=== PATIENT | male | born 1985 | race Caucasian/White ===

== ENCOUNTER 2020-09-25 20:04 | Emergency (ER) | payer OTHER, SELFPAY ==
[2020-09-25 20:11] VITALS: BP 124/78; BP 127/79; PULSE 116; PULSE 119; RESP 20; TEMP 37.2; O2SAT 99; BMI 30.1
--- NOTE | 2020-09-25 21:10 | MHC.RECOVSUP ---
Recovery Support o Current location: ED-22 o Identified substance use concern: Alcohol/Opioid - Overdose <del>-</del> <del>Withdrawal</del> <del>-</del> <del>Seeking</del> <del>ATS</del> <del>(detox)</del> - Support ? Intervention: <del>o</del> <del>ATS</del> <del>bed</del> <del>search</del> <del>started/completed/in</del> <del>process</del> <del>o</del> <del>MAT</del> <del>started</del> <del>or</del> <del>to</del> <del>be</del> <del>started</del> o Community resources provided o Harm reduction discussion ? Plan: <del>o</del> <del>Referral</del> <del>to</del> <del>[facility]</del> <del>o</del> <del>Bed</del> <del>search</del> <del>in</del> <del>progress</del> <del>to</del> <del>o</del> <del>Follow</del> <del>up</del> <del>tomorrow</del> <del>o</del> <del>Patient</del> <del>awaiting</del> <del>crisis</del> <del>evaluation</del> o Patient to follow up with [facility] after discharge ? Additional information:pt was brought in due to an overdose after using for the first time in a while. pt currently suffers from homelessness and is living with his parents. pt stated that he is in an MAT clinic and has been trying to get on VIVITROL. pt also stated that he has a hx of mental health which he described as depression. pt said that he got a ride from [employer] to [email or web address] and had a few drinks which then lead him to buying heroin. He said that he bought one bag and the last thing that he remembers was doing the bag of heroin. pt stated that the people who were around him were the ones who called 911. After speaking with him for sometime pt got emotional and said that he really wants to change for his daughter who is 2. 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 I was able to provide him with multiple resources including recovery coaching. He will give Gagan a call on Monday and I will then get him connected with a sales coach and also into [facility] treatment. I was also able to call his mother so that she can provide him transportation when he is d/c.
--- NOTE | 2020-09-25 21:14 | ED_ITS ---
HPI - Overdose General Chief Complaint: Overdose Stated Complaint: OVERDOSE Time Seen by Provider: 09/25/20 21:14 Source: patient Mode of arrival: EMS History of Present Illness HPI Narrative: This is a 35-year-old male is brought in by EMS after receiving 8 mg of Narcan and total for noted unresponsiveness. Patient states that he had 2 alcoholic drinks this evening and then used heroin after being sober for 3 months. He states that he can feel himself ?going down? and denies any suicidal intent. Related Data Allergies Allergy/AdvReac Type Severity Reaction Status Date / Time Penicillins [PCN] Allergy Severe ANAPHYLAXIS Unverified 03/19/20 18:43 Review of Systems Review of Systems: Pertinent positives and negatives as stated in HPI 10 point review of systems is otherwise negative. PMFSH Past Medical History Source: nursing notes reviewed Social History Social History Advance Directives: No Advance Directives Information Provided: No Physical Exam Vital Signs: Vital Signs: Last Vital Signs Temp 98.6 F 09/25/20 22:00 Pulse 91 09/25/20 22:00 Resp 20 09/25/20 22:00 BP 114/78 09/25/20 22:00 Pulse Ox 99 09/25/20 22:00 Body Mass Index 30.1 VITAL SIGNS: Reviewed. GENERAL: Well developed, well nourished, in no acute distress. HEAD: Normocephalic/atraumatic EYES: PERRLA, EOMI intact OROPHARYNX: no oral lesions noted, posterior pharynx clear NECK: Supple, no adenopathy LUNGS: Normal breath sounds. No adventitious sounds or accessory muscle use. SpO2<99> CARDIOVASCULAR: Regular rate and rhythm without noted murmurs ABDOMEN: Soft, non-tender, non-distended with bowel sounds. SKIN: Inspection of the skin reveals no rashes NEUROLOGIC: Alert and oriented x 4. Course Course Course Narrative: This is a 35-year-old male with history and clinical presentation consistent with relapse, he spoke with his ice skating coach who is provided him with additional outpatient resources, and otherwise patient is stable for discharge to home and continues to deny any suicidal ideation. Discharge Plan Discharge Clinical Impression: Drug overdose Patient Disposition: Home, Self-Care Instructions: Adult Overdose (ED) Additional Instructions: Do not hesitate to return to the emergency department should you develop any concerns regarding detox and we will be more than happy to assist. Referrals: Physician,Unknown [Primary Care Provider] - 2 days Interventions: ED Discharge Assessment Last Done: 09/25/20 22:43 Discharge Date/Time: 09/25/20 22:43
[2020-09-25 22:00] VITALS: BP 114/78; PULSE 91; RESP 20; TEMP 37; O2SAT 99
== END 2020-09-25 22:43 | disposition home or self-care (01) ==
PROVIDERS: Emergency Provider Student in an Organized Health Care Education/Training Program
DX: T40.1X1A Poisoning by heroin, accidental (unintentional), initial encounter (principal); Y92.9 Unspecified place or not applicable; Z71.51 Drug abuse counseling and surveillance of drug abuser
CPT/HCPCS: 99284

== ENCOUNTER 2021-11-13 04:12 | Emergency (ER) | payer OTHER, SELFPAY ==
[2021-11-13 04:21] VITALS: BP 134/88; PULSE 76; O2SAT 96
[2021-11-13 04:22] VITALS: BMI 25.8
[2021-11-13 04:41] VITALS: BP 146/84; PULSE 70; RESP 18; TEMP 36.7; O2SAT 97; BMI 30.4
[2021-11-13] MEDS: Ibuprofen 600 MG TABLET PO (04:47)
--- NOTE | 2021-11-13 07:51 | PC.NURSE ---
PT SLEEPING, AROUSABLE TO PHYSICAL AND VERBAL STIM. GIVEN FOOD, PLAN IS FOR DISCHARGE
--- NOTE | 2021-11-13 08:13 | ED.GENADULT ---
HPI - General Adult General Chief complaint: General Medical Stated complaint: headache Time Seen by Provider: 11/13/21 08:13 Source: patient Mode of arrival: ambulatory Limitations: no limitations History of Present Illness HPI narrative: 36-year-old male homeless has no place to go came in last night for headache, patient was sleeping overnight in the ED admitted that the headache is better now, no other symptoms or complaint, patient declined SI or HI, patient will be going to a friend. Related Data Allergies Allergy/AdvReac Type Severity Reaction Status Date / Time Penicillins [PCN] Allergy Severe ANAPHYLAXIS Unverified 03/19/20 18:43 Review of Systems Review of Systems: All other systems are reviewed and are negative Constitutional: Reports as per HPI and Reports no additional constitutional complaints Eyes: Reports as per HPI and Reports no additional eye complaints Reports system reviewed and no additional complaints, except as documented Cardiovascular: Reports as per HPI and Reports no additional cardiovascular complaints Respiratory: Reports as per HPI and Reports no additional respiratory complaints Gastrointestinal: Reports as per HPI and Reports no additional gastrointestinal complaints Genitourinary: Reports no additional female genitourinary complaints Musculoskeletal: Reports no additional musculoskeletal complaints Skin/Breast: Reports system reviewed and no additional complaints, except as docu Psychiatric: Reports no additional psychiatric complaints Endocrine: Reports no additional endocrine complaints Hematologic/Lymphatic: Reports no additional hematologic/lymphatic complaints Allergic/Immunologic: Reports no additional allergic/immunologic complaints Reports system reviewed and no additional complaints, except as documented and Reports Abnormal speech present [facility] Social History Social History Advance Directives: No Advance Directives Information Provided: No Physical Exam ED Vital Signs: Vital Signs - 24 hr 11/13/21 04:41 Temperature 98.0 F Pulse Rate 70 Respiratory Rate 18 Blood Pressure 146/84 H Pulse Oximetry 97 BMI result Body Mass Index 30.4 vital signs have been reviewed as appeared to be correct. Blood pressure normal. Heart rate normal. Respiration rate normal. Temperature normal. Oxygen saturation normal. Appearance: Alert. Oriented X3. No acute distress. Head: Normal external exam. Normocephalic. Atraumatic. No Posada signs noted. No raccoon eyes noted Eyes: PERRLA. EOMI. Conjunctiva and sclera normal. Eyelids normal. ENT: TM's Normal. Pharynx normal. Uvula midline. Moist mucous membranes. No trismus noted. No drooling noted. No muffled voice noted. Neck: Normal inspection. Neck supple. FROM. No adenopathy. Thyroid Normal. No meningeal signs. No neck mass noted. CVS: Normal heart rate and rhythm. Heart sound normal. No murmurs noted. Pulses normal throughout. Respiratory: No respiratory distress. Painless inspiration. Breath sounds normal. No wheezes/rales/rhonchi noted. Chest nontender. No accessory muscle usage noted or decreased air movement noted. Abdomen: Soft and nontender. Bowel sounds normal in all 4 quadrants. No distention noted. No organomegaly noted. No visible injury noted. Back: No CVA tenderness. Full range of motion noted. Skin: Skin warm and dry. Normal skin color. Normal skin turgor. No rashes/lesions/lacerations noted. Extremities: No lower extremity edema. Extremities exhibit normal range of motion. Extremities nontender. Neuro: Oriented X 3. Cranial nerve exam: II-XII are grossly intact No motor deficit. No sensory deficit. Reflexes normal. Course Course Course Narrative: Assessment and plan. 36-year-old male came in with headache, patient now is asymptomatic, has no or symptoms at the moment. Discharge Plan Discharge Clinical Impression: Headache Patient Disposition: Home, Self-Care Instructions: Acute Headache (ED) Referrals: Pamela Sharp NP [Primary Care Provider] -
== END 2021-11-13 08:29 | disposition home or self-care (01) ==
PROVIDERS: Emergency Provider Emergency Medicine; PCP Nurse Practitioner Family
DX: R51.9 Headache, unspecified (principal)
CPT/HCPCS: 99282; 99283